=== PATIENT | female | born 1975 | race Caucasian/White ===

== ENCOUNTER 2019-01-27 06:30 | Outpatient (CLI) | payer BC ==
[~2019-01-27] VITALS: Ht 170 cm; Wt 87.7 kg
[2019-01-27] VITALS (11 sets, daily range): BP systolic 138–173; BP diastolic 86–99
[2019-01-27] MEDS ORDERED: NS IV 500 ML 500 ML IV SCH (07:30)
--- NOTE | 2019-01-27 08:00 | NUR ---
PATIENT REQUESTING TO HAVE ANXIETY MEDICATION FROM DR. ZAPATA. THIS RN AT [address] ZAPATA OFFICE TO SPEAK WITH DR. ZAPATA OF HIS STAFF ABOUT ABOVE PATIENT. THIS RN WAS SENT TO [facility]. THIS RN PHONED BACK AT 0815 AND INFORMED STAFF THAT I AM CURRENTLY TAKING CARE OF PATIENT AND THAT SHE IS HAVING SURGERY WEDNESDAY AND THAT I NEED TO SPEAK WITH STAFF ABOUT PATIENT'S ANXIETY. THIS RN WAS THEN PUT THROUGH TO [facility] AND INFORMED THAT PATIENT IS REQUESTING ANXIETY MEDICATION. [facility] INFORMED THAT HE WOULD HAVE TO WAIT TO SPEAK WITH DR. ZAPATA ONCE HE ARRIVED TO DISCUSS AND WOULD CALL THIS RN BACK. [facility] PHONED THIS RN BACK AT 0834 AND ASKED IF BLOOD HAD BEEN STARTED YET (THIS RN HAD INFORMED WE HAD STARTED AT 0819) AND WAS CONCERNED ABOUT THIS BEING A RED FLAG AND INFORMED THEY WOULD NOT BE PHONING ANY ANXIETY MEDICATION IN FOR THE PATIENT AND TO SEE IF I WOULD TALK WITH PATIENT TO SEE IF THIS WOULD BE ALRIGHT WITH HER TO CONTINUE WITH INFUSION WITH MEDICATION AND SURGERY ON WEDNESDAY. THIS RN DISCUSSED IN DETAIL WITH PATIENT THAT THEY WOULD NOT BE PRESCRIBING HER ANY ANXIETY MEDICATION FOR TODAY OR THE WEEKEND AND IF THIS WOULD BE A PROBLEM TO CONTINUE WITH THE PRBC'S OR SURGERY ON WEDNESDAY. PATIENT STATES SHE WANTS TO PROCEED WITH PRBC'S TODAY AND SURGERY ON WEDNESDAY.
[2019-01-27 11:17] LABS: HEMOGLOBIN 9.3 G/DL (11.5-16.0)
[2019-01-27 14:17] LABS: HEMOGLOBIN 10.7 G/DL (11.5-16.0)
--- NOTE | 2019-01-27 17:20 | NUR ---
SL DC'D, CATHETER INTACT.
[2019-01-27 17:29] LABS: HEMOGLOBIN 12.2 G/DL (11.5-16.0)
--- NOTE | 2019-01-27 17:30 | NUR ---
PT AMBULATED TO PERSONAL TRANSPORT VEHICLE. S/O AT PT'S SIDE. DC INSTRUCTIONS IN HAND. DENIES QUESTIONS AT THIS TIME.
== END 2019-01-27 07:25 ==
LOC: SDC 06:30
PROVIDERS: ATTEND Orthopaedic Surgery Orthopaedic Trauma
DX: D64.9 Anemia, unspecified (principal)
CPT/HCPCS: 36415; 36430; 85014; 85018; 86850; 86900; 86901; 86920